=== PATIENT | male | born 1960 | race Caucasian/White ===

== ENCOUNTER 2020-04-13 11:12 | Outpatient (REF) | payer OTHER, SELFPAY | END 2020-04-13 11:13 | disposition home or self-care (01) | LOC: HO.LAB 11:12 | PROVIDERS: Visit Provider Internal Medicine | DX: Z20.828 Contact with and (suspected) exposure to other viral communicable diseases (principal) | CPT/HCPCS: C9803; U0003 ==

== ENCOUNTER 2021-05-05 07:30 | Outpatient (REF) | payer OTHER, SELFPAY ==
[2021-05-05 07:58] LABS: COVID-19 Test Negative (Negative)
== END 2021-05-05 07:31 | disposition home or self-care (01) ==
LOC: HO.LAB 07:30
PROVIDERS: Visit Provider Internal Medicine
DX: Z20.822 Contact with and (suspected) exposure to COVID-19 (principal)
CPT/HCPCS: 36415; 87635; C9803

== ENCOUNTER 2021-05-10 08:02 | Outpatient (REF) | payer OTHER, SELFPAY | END 2021-05-10 08:03 | disposition home or self-care (01) | LOC: HO.LAB 08:02 | PROVIDERS: Visit Provider Internal Medicine | DX: Z20.822 Contact with and (suspected) exposure to COVID-19 (principal) | CPT/HCPCS: C9803; U0003; U0005 ==

== ENCOUNTER 2024-12-30 15:26 | Outpatient (AMB) | payer OTHER, SELFPAY ==
--- OUTSIDE RECORDS SUMMARY | 2024-12-30 15:56 | XMS_ITS | Clinical Summary ---
Author Organization [facility] Address [address] [facility] [address] [place] [address] Phone Care Team Providers Care Gutter Installer Name Role Phone Romulo Washington MD Primary Care Provider + [phone] Allergies No known active allergies Medications metFORMIN (FORTAMET) 500 MG 24 hr tablet Take 1,000 mg by mouth in the morning and 1,000 mg in the evening. Do not crush, chew, or split.. Active lisinopril-hydro CHLOROthiazide (PRINZIDE,ZESTOR ETIC) 20-25 MG per tablet Take 1 tablet by mouth 1 (one) time each day Active meloxicam (MOBIC) 15 MG tablet Take 15 mg by mouth 1 (one) time each day Active Dapagliflozin Propanediol (Farxiga) 5 MG tablet Take 5 mg by mouth 1 (one) time each day in the morning Active atorvastatin (LIPITOR) 80 MG tablet Take 80 mg by mouth 1 (one) time each day Active PARoxetine (PAXIL) 30 MG tablet Take 30 mg by mouth 1 (one) time each day in the morning Active SITagliptin (JANUVIA) 25 MG tablet Take 25 mg by mouth 1 (one) time each day Active amLODIPine (NORVASC) 10 MG tablet Take 10 mg by mouth 1 (one) time each day Active aspirin (ST LATESAH) 81 MG EC tablet Take 81 mg by mouth 1 (one) time each day Active Calcium Carbonate-Vit D-Min (CALCIUM 1200 PO) Take 1,200 Units by mouth 1 (one) time each day Active Cholecalciferol (Vitamin D-3) 125 MCG (5000 UT) tablet Take 1 tablet by mouth 1 (one) time each day Active Active Problems Problem Noted Date Diagnosed Date Proteinuria, not otherwise specified 08/03/2023 Diabetes mellitus, not otherwise specified 08/02 Hypertension 08/03/2023 Personal history of prostate cancer 08/03/2023 Family History Relation Status Comments Father Alive Mother Alive Social History Tobacco Use Types Packs/Day Years Used Date Smoking Tobacco: Never Tobacco Cessation:Counseling Given: Not Answered Alcohol Use Standard Drinks/Week Comments Yes 0 (1 standard drink = 0.6 oz pur e alcohol) occasionally Sex and Gender Information Value Date Recorded Sex Assigned at Not on file Legal Sex Male 1:51 PM EST Gender Identity Not on file Sexual Orientation Not on file Last Filed Vital Signs Vital Sign Reading Time Taken Comments Blood Pressure 119/87 07/30/2024 7:56 AM EDT Pulse 76 07/30/2024 7:56 AM EDT Temperature - - Respiratory Rate - - Oxygen Saturation 96% 07/30/2024 7:56 AM EDT Inhaled Oxygen Concentration - - Weight 81.3 kg (179 lb 3.2 oz) 07/30/2024 7:56 A M EDT Height 167.6 cm (5' 6 ) 07/30/2024 7:56 AM EDT Body Mass Index 28.92 07/30/2024 7:56 AM EDT Plan of Treatment Upcoming Encounters Date Type Department Care Team (Late st Contact Info) Description 07/30/2025 8:00 AM EDT [facility] Visit [facility] [address] [id number] Morris Mejia MD [address] [address] Health Maintenance Due Date Last Done Comments Pneumococcal Vaccine: 50+ Ye ars (1 of 2 - PCV) 11/15/1978 Colorectal Cancer Screening: Annual FOBT 11/15/2008 Colorectal Cancer Screening: Colonoscopy 11/15/2008 Colorectal Cancer Screening: Sigmoidoscopy 11/15/2008 Diabetes: Ophthalmology Exam 08/03/2023 Diabetes: Pedal Pulse Checked 08/03/2023 Diabetes: Sensory Foot Exam 08/03/2023 Diabetes: Visual Foot Exam 08/03/2023 Diabetes: Hemoglobin A1C 08/29/2024 05/31/2024 Influenza Vaccine (#1) 2025 Hepatitis B Vaccine Aged Out No longe r eligible based on patient's age to complete this topic Insurance [employer] Commercial [employer] Care Teams Gutter Installer Relationship Specialty Start Date End Date Romulo Washington MD [address] [place] [address] PCP - General Internal Medicine 08/03/23
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
--- OUTSIDE RECORDS SUMMARY | 2024-12-30 15:56 | XMS_ITS ---
[facility] Name [facility] Organization Unknown Care Team Organization Name Specialty Phone Email Start Date End [facility] NULL Primary Care 03/22/2022 01/01/2024
== END 2024-12-30 15:42 | disposition home or self-care (01) ==
LOC: HO.HMGAL 15:26
PROVIDERS: PCP Internal Medicine; Visit Provider Registered Nurse Emergency
DX: J30.89 Other allergic rhinitis (principal)
CPT/HCPCS: 95117; 95165

== ENCOUNTER 2025-04-21 15:47 | Outpatient (AMB) | payer OTHER, SELFPAY ==
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
== END 2025-04-21 15:48 | disposition home or self-care (01) ==
LOC: HO.HMGAL 15:47
PROVIDERS: PCP Internal Medicine; Visit Provider Registered Nurse Emergency
DX: J30.89 Other allergic rhinitis (principal)
CPT/HCPCS: 95117; 95165